=== PATIENT | male | born 2005 ===

== ENCOUNTER 2024-05-19 06:31 | Emergency (ER) | payer OTHER, SELFPAY ==
[2024-05-19] MEDS ORDERED: Acetaminophen 500 MG TAB ONE (07:55)
[2024-05-19] MEDS ORDERED: Bacitracin 1 PK ONE (09:10)
== END 2024-05-19 09:22 | disposition home or self-care (01) ==
LOC: MADERS 06:31
DX: S30.1XXA Contusion of abdominal wall, initial encounter (principal); V43.52XA Car driver injured in collision with other type car in traffic accident, initial encounter
CPT/HCPCS: 71250; 74177